=== PATIENT | male | born 1965 | race African-American/Black ===

== ENCOUNTER 2016-09-01 13:04 | Emergency (ER) | payer OTHER ==
[~2016-09-01] VITALS: Ht 188 cm; Wt 97.5 kg
--- NOTE | 2016-09-01 13:20 | NUR ---
called patient in to triage room x 3 times, no response. will try again later.
--- NOTE | 2016-09-01 13:30 | NUR ---
Presents self to ed due to dental pain, 02/18. Patient is also complaining of llg swelling started few days ago. ambulatory. Skin is intact. No redness. positive pedal pulse. vss. will cont to monitor
--- NOTE | 2016-09-01 13:40 | NUR ---
technical agronomist at bs
[2016-09-01] MEDS ORDERED: predniSONE 20 MG TABLET ONE (14:22)
[2016-09-01] MEDS: predniSONE 20 MG TABLET PO ONE (14:29)
[2016-09-01 14:30] LABS: BASOPHILS # (AUTO) 0.1 /CMM (0.0-0.2); EOSINOPHILS # (AUTO) 0.4 /CMM (0.0-0.7); EOSINOPHILS % (AUTO) 3.7 % (0.0-6.0); HEMATOCRIT 38 % (39-51); HEMOGLOBIN 12.8 g/dL (13.5-17.5); LYMPHOCYTES # (AUTO) 2.8 /CMM (0.8-4.8); LYMPHOCYTES % (AUTO) 28.7 % (20.0-44.0); MEAN CORPUSCULAR HEMOGLOBIN 27 PG (26.0-33.0); MEAN CORPUSCULAR HGB CONC 33 g/dl (31.0-36.0); MEAN CORPUSCULAR VOLUME 82 fL (80-96); MONOCYTES # (AUTO) 0.6 /CMM (0.1-1.30); MONOCYTES % (AUTO) 6.6 % (2.0-12.0); NEUTROPHILS # (AUTO) 5.9 /CMM (1.8-8.9); PLATELET COUNT (AUTO) 217 /CMM (150-450); RDW COEFFICIENT OF VARIATION 12.4 (11.5-15.0); WHITE BLOOD COUNT (AUTO) 9.8 K/uL (4.3-11.0)
[2016-09-01] MEDS ORDERED: ALBUTEROL FS 2.5 MG/3 ML VIAL.NEB ONE (14:30)
[2016-09-01] MEDS: ALBUTEROL FS 2.5 MG/3 ML VIAL.NEB NEB ONE (14:32)
[2016-09-01 14:44] LABS: CALCIUM, SERUM 8.6 mg/dL (8.5-10.1); POTASSIUM 4.3 mmol/L (3.5-5.1)
[2016-09-01] MEDS ORDERED: HYDROCODONE/APAP 10/325MG 1 EA TABLET ONE (15:03)
[2016-09-01] MEDS: HYDROCODONE/APAP 10/325MG 1 EA TABLET PO ONE (15:07)
--- NOTE | 2016-09-01 15:08 | NUR ---
raman francisco at
[2016-09-01] MEDS ORDERED: ALBU8.5H2 IH (15:40)
--- NOTE | 2016-09-01 15:46 | NUR ---
Patient does not wish to proceed with medical care recommended by Degrasse POT HOLDER BINDER. Patient given information related to possible complications, up to and including , which could occur as a result of leaving the hospital at this time. Patient verbalizes understanding of risks involved due to leaving against medical advice. Patient has signed AMA form.
[2016-09-01 15:48] VITALS: BP 140/88
[2016-09-01 18:27] LABS: INR 0.93 (0.87-1.13); PROTHROMBIN TIME 9.9 SECS (9.5-12.7)
== END 2016-09-01 15:57 | disposition left against medical advice (07) ==
LOC: ER 13:09
DX: I82.492 Acute embolism and thrombosis of other specified deep vein of left lower extremity (principal); J45.901 Unspecified asthma with (acute) exacerbation; K08.89 Other specified disorders of teeth and supporting structures; F17.210 Nicotine dependence, cigarettes, uncomplicated
CPT/HCPCS: 36415; 71010; 80048; 85025; 85378; 85610; 93971; 94640; 99285; 99406; A4606; J7512; Z7610

== ENCOUNTER 2016-09-01 22:22 | Emergency (ER) | payer OTHER ==
[~2016-09-01] VITALS: Ht 185.4 cm; Wt 93.4 kg
[~2016-09-01 22:22] MED LIST: ALBU8.5H2 IH
--- NOTE | 2016-09-01 22:50 | NUR ---
to bed 1 ambulatory c/o LLE Dvt. Pt was seen and evaluated here earlier today and signed out ama. Pt was diagnosed with Partially occlusive deep venous thrombosis of the left femoral and popliteal veins. placed pt on cardiac monitoring, continuous pox, o2@2l/nc. pending er md alonzo.
--- NOTE | 2016-09-01 23:03 | NUR ---
jeanette moran at bedside to clinton reyes.
[2016-09-01] MEDS ORDERED: IPRATROPIUM NEB FS 0.5 MG/2.5 ML AMPUL.NEB ONE (23:53)
[2016-09-01] MEDS ORDERED: ALBUTEROL FS 2.5 MG/3 ML VIAL.NEB ONE (23:53)
[2016-09-02] MEDS ORDERED: IPRATROPIUM NEB FS 0.5 MG/2.5 ML AMPUL.NEB NEB ONE
[2016-09-02] MEDS ORDERED: ALBUTEROL FS 2.5 MG/3 ML VIAL.NEB NEB ONE
--- NOTE | 2016-09-02 | NUR ---
rt at bedside to give hhn tx.
[2016-09-02 00:44] VITALS: BP 134/76
--- NOTE | 2016-09-02 00:44 | NUR ---
Patient discharged to home in stable condition. Written and verbal after care instructions given. Patient verbalizes understanding of instruction. ambulatory with a steady gait
== END 2016-09-02 00:45 | disposition home or self-care (01) ==
LOC: ER 22:26
DX: I82.402 Acute embolism and thrombosis of unspecified deep veins of left lower extremity (principal); J45.909 Unspecified asthma, uncomplicated; F10.20 Alcohol dependence, uncomplicated; F17.210 Nicotine dependence, cigarettes, uncomplicated; R06.2 Wheezing
CPT/HCPCS: 94640; 99285; A4606; Z7610

== ENCOUNTER 2016-09-08 11:40 | Emergency (ER) | payer OTHER ==
[~2016-09-08] VITALS: Ht 185.4 cm; Wt 90.7 kg
[2016-09-08 11:40] VITALS: BP 114/71
--- NOTE | 2016-09-08 12:28 | NUR ---
PT IS AGITATED ABOUT NOT GETTING PRESCRIPTION FOR [facility]. LEFT W/OUT ACI AND PRESCRIPTION.
== END 2016-09-08 12:31 | disposition home or self-care (01) ==
LOC: ER 11:43
DX: I82.4Z2 Acute embolism and thrombosis of unspecified deep veins of left distal lower extremity (principal); K08.89 Other specified disorders of teeth and supporting structures; J45.909 Unspecified asthma, uncomplicated; F17.200 Nicotine dependence, unspecified, uncomplicated
CPT/HCPCS: 99282; A4606; Z7610

== ENCOUNTER 2016-09-21 14:07 | Emergency (ER) | payer OTHER ==
[~2016-09-21] VITALS: Ht 185.4 cm; Wt 93.9 kg
--- NOTE | 2016-09-21 14:07 | NUR ---
PT BIB SELF C/O LEFT LOWER EXTREMITY SWELLING X YESTERDAY. COMPLAINS OF LLE PAIN. PLACED ON MONITOR. VSS. AWAITING MD ORDER.
--- NOTE | 2016-09-21 15:49 | NUR ---
Patient discharged to home in stable condition. Written and verbal after care instructions given. Patient verbalizes understanding of instruction.
[2016-09-21 15:50] VITALS: BP 130/85
== END 2016-09-21 15:52 | disposition home or self-care (01) ==
LOC: ER 14:08
DX: R60.0 Localized edema (principal); J45.909 Unspecified asthma, uncomplicated; F17.200 Nicotine dependence, unspecified, uncomplicated; Z86.718 Personal history of other venous thrombosis and embolism
CPT/HCPCS: 93971; 99284; A4606; Z7610

== ENCOUNTER 2016-11-11 04:17 | Emergency (ER) | payer OTHER ==
[~2016-11-11] VITALS: Ht 185.4 cm; Wt 93.9 kg
--- NOTE | 2016-11-11 04:27 | NUR ---
CALLED MR ADDISON AT WAITING ROOM NO ANSWER
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
--- NOTE | 2016-11-11 04:44 | NUR ---
DR. RUSSELL IS AT THE BEDSIDE.
[2016-11-11] MEDS ORDERED: IBUPROFEN 400 MG TABLET ONE (04:48)
[2016-11-11] MEDS ORDERED: RIVA1TAB PO (04:48)
--- NOTE | 2016-11-11 04:55 | NUR ---
PT REFUSED MOTRIN. AWARE.
--- NOTE | 2016-11-11 04:57 | NUR ---
PT IS STANDING AT THE BEDSIDE WITH HIS PHONE PLUGGED IN THE WALL. PT HAS EAR BUDS IN AND IS TALKING TO HIMSELF.
[2016-11-11] MEDS ORDERED: IBUPROFEN 400 MG TABLET PO ONE (05:00)
--- NOTE | 2016-11-11 05:06 | NUR ---
PT LEFT FOR CT VIA GURNEY.
--- NOTE | 2016-11-11 05:30 | NUR ---
PT RETURNED FROM CT.
[2016-11-11 05:35] VITALS: BP 142/87
--- NOTE | 2016-11-11 05:45 | NUR ---
PT APPEARS TO BE SLEEPING COMFORTABLY WITH NO S/S OF PAIN OR DISTRESS.
--- NOTE | 2016-11-11 06:20 | NUR ---
PT WAS GIVEN D/C INFORMATION AND AN RX FOR IBUPROFEN AND PRO AIR. PT GOT UPSET AND STARTED YELLING. PT WANTED ZYPREXA. PT WAS NOTIFIED THAT THE DR WAS NOT GIVING HIM AN RX FOR THAT MEDICATION AND THAT HE NEEDED TO F/U WITH HIS PSYCHIATRIST. PT WALKED OUT OF THE ER VERY UPSET.
--- NOTE | 2016-11-11 06:20 | NUR ---
Patient does not wish to proceed with medical care recommended by Dr. RUSSELL. Patient given information related to possible complications, up to and including , which could occur as a result of leaving the hospital at this time. Patient verbalizes understanding of risks involved due to leaving against medical advice. Patient has signed AMA form.
== END 2016-11-11 06:20 | disposition left against medical advice (07) ==
LOC: ER 04:17
DX: M54.2 Cervicalgia (principal); M54.6 Pain in thoracic spine; M54.5 Low back pain; J45.909 Unspecified asthma, uncomplicated; Z79.01 Long term (current) use of anticoagulants; Z86.718 Personal history of other venous thrombosis and embolism; F17.200 Nicotine dependence, unspecified, uncomplicated; V42.9XXA Unspecified car occupant injured in collision with two- or three-wheeled motor vehicle in traffic accident, initial encounter; Y93.89 Activity, other specified; Y92.488 Other paved roadways as the place of occurrence of the external cause; Y99.8 Other external cause status
CPT/HCPCS: 72050; 72074; 72110; 99284; A4606; Z7610

== ENCOUNTER 2017-05-14 08:30 | Inpatient (IN) | payer OTHER ==
[~2017-05-14] VITALS: Ht 188 cm; Wt 96.2 kg
[~2017-05-14 08:30] MED LIST changes: +RIVA1TAB PO
--- NOTE | 2017-05-14 08:40 | NUR ---
AAOX3, [id number] FROM HOME FOR ON/OFF NON RADIATING LEFT SIDED CHEST PAIN X 0700AM [id number], [id number] GIVEN BY EMS. PLACED ON MONITOR AND HOSPITAL GOWN. DR GUAN AT BS FOR EVAL. RR IS EVEN AND UNLABORED WITH NAD NOTED.
[2017-05-14 08:46] LABS: BASOPHILS # (AUTO) 0.1 /CMM (0.0-0.2); BASOPHILS % (AUTO) 0.9 % (0.0-2.0); EOSINOPHILS # (AUTO) 0.4 /CMM (0.0-0.7); EOSINOPHILS % (AUTO) 5.2 % (0.0-6.0); HEMATOCRIT 41 % (39-51); HEMOGLOBIN 13.4 g/dL (13.5-17.5); LYMPHOCYTES # (AUTO) 2.5 /CMM (0.8-4.8); LYMPHOCYTES % (AUTO) 33.1 % (20.0-44.0); MEAN CORPUSCULAR HEMOGLOBIN 27 PG (26.0-33.0); MEAN CORPUSCULAR HGB CONC 32 g/dl (31.0-36.0); MEAN CORPUSCULAR VOLUME 83 fL (80-96); MONOCYTES # (AUTO) 0.6 /CMM (0.1-1.30); MONOCYTES % (AUTO) 8.1 % (2.0-12.0); NEUTROPHILS % (AUTO) 52.7 % (43.0-81.0); PLATELET COUNT (AUTO) 209 /CMM (150-450); RDW COEFFICIENT OF VARIATION 14.9 (11.5-15.0); RED BLOOD CELL COUNT(AUTO) 4.97 MIL/uL (4.5-6.0); WHITE BLOOD COUNT (AUTO) 7.5 K/uL (4.3-11.0)
[2017-05-14 09:08] LABS: INR 0.93 (0.87-1.13); PROTHROMBIN TIME 9.7 SECS (9.5-12.7)
[2017-05-14 09:10] LABS: CALCIUM, SERUM 8.8 mg/dL (8.5-10.1); CARBON DIOXIDE 31 mmol/L (21-32); CHLORIDE 112 mmol/L (98-107); CREATININE 0.9 mg/dL (0.6-1.3); GLUCOSE 99 mg/dL (74-106); POTASSIUM 4.4 mmol/L (3.5-5.1); SODIUM SERUM 147 mmol/L (136-145); UREA NITROGEN, BLOOD 16 mg/dL (7-18)
[2017-05-14 09:16] LABS: ALANINE AMINOTRANSFERASE 39 U/L (12-78); ALBUMIN 3.5 g/dL (3.4-5.0); ALKALINE PHOSPHATASE 163 U/L (46-116); ASPARTATE AMINOTRANSFERASE 25 U/L (15-37); BILIRUBIN,TOTAL 0.2 mg/dL (0.2-1.0); TOTAL PROTEIN, SERUM 6.7 g/dL (6.4-8.2)
[2017-05-14 09:18] LABS: TROPONIN I < 0.017 ng/mL (0.00-0.056)
[2017-05-14] MEDS ORDERED: CT SWABBABLE VALVE TRANS SET 1 EA INFUS.SET MC ONE (09:21)
[2017-05-14] MEDS ORDERED: IOHEXOL-350 100 ML VIAL IV ONE (09:21)
[2017-05-14] MEDS ORDERED: IV NS 0.9% 250 ML IV ONE (09:22)
--- NOTE | 2017-05-14 09:25 | NUR ---
VASCULAR US TECH AT BS
--- NOTE | 2017-05-14 09:42 | NUR ---
PAGED [facility] -- ROBERTO GIBSON TUGBOAT OPERATOR.
--- NOTE | 2017-05-14 09:43 | NUR ---
PATIENT TRANSPORTED FOR CT.
[2017-05-14 10:03] LABS: EOSINOPHILS % (MANUAL) 4 % (0-4); LYMPHOCYTES % (MANUAL) 14 % (16-48); MONOCYTES % (MANUAL) 4 % (0-11.0); NEUTROPHILS % (MANUAL) 78 (42-76)
[2017-05-14] MEDS ORDERED: RIVA10TA PO (10:04)
[2017-05-14] MEDS ORDERED: OLAN10TA3 PO (10:04)
--- NOTE | 2017-05-14 10:24 | NUR ---
REPORT GIVEN TO AUDRA KOCH FOR NAHID TELE 112-2
--- NOTE | 2017-05-14 10:27 | NUR ---
TOLD TO RECEIVE LOVENOX SQ IN HIS ABDOMEN BUT WANTS IT GIVEN TO HIS ARM INSTEAD
[2017-05-14] MEDS ORDERED: ENOXAPARIN SODIUM 100 MG/ML DISP.SYRIN SQ ONE (10:30)
[2017-05-14 10:45] VITALS: BP 127/81
--- NOTE | 2017-05-14 10:45 | NUR ---
RN NOTES RECEIVED PATIENT FROM ER ALERT, AWAKE, ORIENTED X4 WITH BREATHING NORMAL, EVEN AND UNLABORED. NO SOB NOTED. NO ACUTE DISTRESS NOTED. TELE MONITOR REVEALS SR, HR=66. IV RAC IS PATENT AND INTACT, NO INFILTRATION NOTED. DENIES ANY PAIN OR DISCOMFORT. BOWEL SOUND PRESENT. PULSE PRESENT. SAFETY MEASURE OBSERVED. CALL LIGHT WITH IN REACH. WILL CONT TO MONITOR.
[2017-05-14] MEDS ORDERED: IV NS 0.9% 1,000 ML IV PRN (11:15)
[2017-05-14] MEDS ORDERED: MORPHINE SULFATE INJ 2 MG/ML DISP.SYRIN IV PRN (11:30)
[2017-05-14] MEDS ORDERED: ACETAMINOPHEN 325 MG TABLET PO PRN (11:30)
[2017-05-14] MEDS ORDERED: ENOXAPARIN SODIUM 40 MG/0.4 ML DISP.SYRIN SQ SCH (11:30)
[2017-05-14] MEDS ORDERED: ONDANSETRON HCL/PF 4 MG/2 ML VIAL IVP PRN (11:30)
[2017-05-14] MEDS ORDERED: ZOLPIDEM TARTRATE 5 MG TABLET PO PRN (11:30)
[2017-05-14 12:00] VITALS: BP_SYST 124; BP_SYST 127; BP_DIAS 75; BP_DIAS 81
[2017-05-14] MEDS ORDERED: FLU VACC QS 2017-18(36MOS+)/PF 0.5 ML DISP.SYRIN IM ONE (12:00)
[2017-05-14] MEDS ORDERED: FENTANYL PF 100MCG/2ML AMPUL IV PRN (12:00)
[2017-05-14 16:00] VITALS: BP 124/64
[2017-05-14] MEDS: IV 1/2NS 1000 ML 1,000 ML IV PRN (17:43)
--- NOTE | 2017-05-14 19:06 | NUR ---
RN NOTES PATIENT DISCHARGED IN STABLE CONDITION WITH BREATHING NORMAL, EVEN AND UNLABORED. NO SOB NOTED. NO ACUTE DISTRESS NOTED. KEPT CLEAN, DRY AND COMFORTABLE. ALL NEEDS ATTENDED. SAFETY MEASURE OBSERVED. CALL LIGHT WITH IN REACH. WILL CONT TO MONITOR.
--- NOTE | 2017-05-14 19:35 | NUR ---
BODY LINER NOTES RECEIVED ON BED A/O X4,DENIES CHEST PAIN AT THE MOMENT,VISITOR AT BEDSIDE.SALINE LOCK WITH IV FLUIDS INFUSING WELL VIA RIGHT AC.CALL LIGHT IN REACH,NEEDS ANTICIPATED.
--- NOTE | 2017-05-14 19:40 | NUR ---
TRAFFIC WAREHOUSE SUPERVISOR NOTES CLAIMED HE'S HUNGRY,GIVEN TUNA SANDWICH PER PATIENT REQUEST.
[2017-05-14 20:00] VITALS: BP 137/85
--- NOTE | 2017-05-14 22:49 | NUR ---
GEOLOGICAL DRAFTER NOTES SLEEPING AT THIS TIME,KEPT WARM AND COMFORTABLE.
[2017-05-15] VITALS: BP 125/74
[2017-05-15 04:43] VITALS: BP 116/64
[2017-05-15] MEDS: IV 1/2NS 1000 ML 1,000 ML IV PRN (05:53)
--- NOTE | 2017-05-15 06:30 | NUR ---
MARINA MANAGER NOTES SLEPT WITH INTERVALS,AVRIL CHEST PAIN,ABLE TO DANGLE BOTH LEGS.IVF IN PROGRESS.CALL LIGHT IN REACH,NEEDS ATTENDED.WILL ENDORSE TO DAY NURSE FOR NAHID
[2017-05-15 07:27] LABS: BASOPHILS # (AUTO) 0.3 /CMM (0.0-0.2); BASOPHILS % (AUTO) 3.7 % (0.0-2.0); EOSINOPHILS # (AUTO) 0.6 /CMM (0.0-0.7); EOSINOPHILS % (AUTO) 7.6 % (0.0-6.0); HEMATOCRIT 40 % (39-51); HEMOGLOBIN 12.9 g/dL (13.5-17.5); LYMPHOCYTES # (AUTO) 2.5 /CMM (0.8-4.8); LYMPHOCYTES % (AUTO) 32.7 % (20.0-44.0); MEAN CORPUSCULAR HEMOGLOBIN 27 PG (26.0-33.0); MEAN CORPUSCULAR HGB CONC 32 g/dl (31.0-36.0); MEAN CORPUSCULAR VOLUME 82 fL (80-96); MONOCYTES # (AUTO) 0.7 /CMM (0.1-1.30); MONOCYTES % (AUTO) 9.1 % (2.0-12.0); NEUTROPHILS # (AUTO) 3.5 /CMM (1.8-8.9); NEUTROPHILS % (AUTO) 46.9 % (43.0-81.0); PLATELET COUNT (AUTO) 189 /CMM (150-450); RDW COEFFICIENT OF VARIATION 14.6 (11.5-15.0); RED BLOOD CELL COUNT(AUTO) 4.85 MIL/uL (4.5-6.0); WHITE BLOOD COUNT (AUTO) 7.5 K/uL (4.3-11.0)
--- NOTE | 2017-05-15 07:30 | NUR ---
RN AM NOTES RECEIVED PATIENT IN BED, AOX4, ON RA, NAD, NO SOB, RESPIRATION UNLABORED, TELEMETRY READS SR HR 68, DENIES CHEST PAIN OR DISCOMFORT AT THIS TIME. RT AC G20 WITH 1/2 NS AT 100 ML/HR INFUSING WELL, SITE CLEAR. SKIN INTACT, REGULAR DIET, AMBULATORY, SAFETY MEASURE OBSERVED. CALL LIGHT WITH IN REACH. WILL CONT TO MONITOR.
[2017-05-15 07:43] LABS: ALBUMIN 3.1 g/dL (3.4-5.0); BILIRUBIN,TOTAL 0.4 mg/dL (0.2-1.0); CALCIUM, SERUM 8.6 mg/dL (8.5-10.1); MAGNESIUM 1.8 mg/dL (1.8-2.4); PHOSPHORUS 3.5 mg/dL (2.5-4.9); POTASSIUM 4.4 mmol/L (3.5-5.1); TOTAL PROTEIN, SERUM 6.2 g/dL (6.4-8.2)
[2017-05-15 07:49] LABS: THYROID STIMULATING HORMONE 1.395 uIU/mL (0.358-3.74)
[2017-05-15 08:00] VITALS: BP_SYST 116; BP_SYST 122; BP_DIAS 64; BP_DIAS 74
[2017-05-15] MEDS ORDERED: OLANZAPINE 10 MG TABLET PO SCH (09:00)
[2017-05-15] MEDS ORDERED: RIVAROXABAN 10 MG TABLET PO SCH (09:00)
--- NOTE | 2017-05-15 09:30 | NUR ---
RN NOTES ADMINISTERED DUE MEDS.
--- NOTE | 2017-05-15 11:23 | NUR ---
BOOK JOGGER NOTES. PATIENT DISCHARGED TO HOME TODAY PER MD IN STABLE CONDITION. PROVIDED DC INSTRUCTIONS, MED RECON LIST/PRESCRIPTIONS AND HEALTH TEACHINGS. PATIENT TO FOLLOW UP WITH PCP ION 1-2 WEEKS AND WILL MAKE OWN SCHEDULE. RIGHT AC IV ACCESS REMOVED, NO BLEEDING, DRESSING IN PLACE. ALL BELONGINGS CHECKED, RETURNED. ALL PAPER WORKS SIGNED, ACCOUNTS RECEIVABLE MANAGER PATIENT AND WILL GO HOME VIA PRIVATE CAR.
== END 2017-05-15 11:23 | disposition home or self-care (01) | DRG 203 ==
LOC: ER 08:31 → TELE1 10:19
PROVIDERS: ADMIT Nurse Practitioner Acute Care; ATTEND Nurse Practitioner Acute Care
DX: M94.0 Chondrocostal junction syndrome [Tietze] (principal); E87.0 Hyperosmolality and hypernatremia; E86.0 Dehydration; Z91.19 Patient's noncompliance with other medical treatment and regimen; Z86.718 Personal history of other venous thrombosis and embolism; F17.210 Nicotine dependence, cigarettes, uncomplicated; J45.909 Unspecified asthma, uncomplicated; F15.129 Other stimulant abuse with intoxication, unspecified
CPT/HCPCS: 36415; 71010-TC; 80048-TC; 80053-TC; 80061-TC; 80076-TC; 83735-TC; 84100-TC; 84443-TC; 84484-TC; 85025-TC; 85730-TC; 93307-TC; 93970-TC; A4606; J1650; J3490; J7030; J7050; Q2036; Q9967; Z7610

== ENCOUNTER 2017-05-24 18:06 | Emergency (ER) | payer OTHER ==
[~2017-05-24] VITALS: Ht 182.9 cm; Wt 95.3 kg
[~2017-05-24 18:06] MED LIST changes: -ALBU8.5H2 IH; +OLAN10TA3 PO; +RIVA10TA PO; -RIVA1TAB PO
[2017-05-24 18:50] VITALS: BP 121/86
--- NOTE | 2017-05-24 19:30 | NUR ---
PT REFUSED ACCUCHECK. WANT TO LEAVE ED RIGHT NOW. RASHAD IMPRESSION PRINTER AWARE. PT D/C HOME STABLE COND.
== END 2017-05-24 19:48 | disposition home or self-care (01) ==
LOC: ER 18:08
DX: M70.22 Olecranon bursitis, left elbow (principal); J45.909 Unspecified asthma, uncomplicated; F17.200 Nicotine dependence, unspecified, uncomplicated; Z79.01 Long term (current) use of anticoagulants; Z86.718 Personal history of other venous thrombosis and embolism; V87.8XXA Person injured in other specified noncollision transport accidents involving motor vehicle (traffic), initial encounter; Y93.55 Activity, bike riding; Y92.413 State road as the place of occurrence of the external cause; Y99.8 Other external cause status
CPT/HCPCS: 99282; A4606; Z7610

== ENCOUNTER 2017-11-20 10:59 | Emergency (ER) | payer OTHER ==
[~2017-11-20] VITALS: Ht 185.4 cm; Wt 111.1 kg
--- NOTE | 2017-11-20 11:05 | NUR ---
PRESENTS TO ER C/O FEELING DEPRESSED, HAVING THOUGHTS OF HURTING SELF W/O PLAN. DENIES HI. A/OX 4. BREATHING EVEN AND UNLABORED. CALM AND COOPERATIVE. NAD, NO SOB, VITALS STABLE. SAFETY AND COMFORT MEASURES IN PLACE. AWAITING MD ORDERS.
--- NOTE | 2017-11-20 11:22 | NUR ---
SALES AND MARKETING VICE PRESIDENT AT BEDSIDE FOR BLOOD DRAW.
[2017-11-20 11:31] LABS: BASOPHILS # (AUTO) 0.1 /CMM (0.0-0.2); EOSINOPHILS % (AUTO) 5.8 % (0.0-6.0); HEMATOCRIT 41 % (39-51); HEMOGLOBIN 13.4 g/dL (13.5-17.5); LYMPHOCYTES # (AUTO) 2.6 /CMM (0.8-4.8); LYMPHOCYTES % (AUTO) 36.4 % (20.0-44.0); MEAN CORPUSCULAR HGB CONC 33 g/dl (31.0-36.0); MEAN CORPUSCULAR VOLUME 80 fL (80-96); MONOCYTES # (AUTO) 0.5 /CMM (0.1-1.30); MONOCYTES % (AUTO) 7.6 % (2.0-12.0); NEUTROPHILS # (AUTO) 3.4 /CMM (1.8-8.9); NEUTROPHILS % (AUTO) 49.2 % (43.0-81.0); PLATELET COUNT (AUTO) 162 /CMM (150-450); RDW COEFFICIENT OF VARIATION 13.1 (11.5-15.0)
--- NOTE | 2017-11-20 11:32 | NUR ---
URINE OBTAINED AND SENT TO LAB.
[2017-11-20 11:38] LABS: CALCIUM, SERUM 8.7 mg/dL (8.5-10.1); CARBON DIOXIDE 30 mmol/L (21-32); CHLORIDE 109 mmol/L (98-107); GLUCOSE 115 mg/dL (74-106); POTASSIUM 4.1 mmol/L (3.5-5.1); SODIUM SERUM 144 mmol/L (136-145); UREA NITROGEN, BLOOD 13 mg/dL (7-18)
[2017-11-20 11:51] LABS: ACETAMINOPHEN < 2 ug/ml (10-30); ALANINE AMINOTRANSFERASE 21 U/L (12-78); ALBUMIN 3.4 g/dL (3.4-5.0); ALCOHOL, BLOOD < 3 mg/dL (0-0); ALKALINE PHOSPHATASE 98 U/L (46-116); ASPARTATE AMINOTRANSFERASE 17 U/L (15-37); BILIRUBIN,DIRECT 0.1 mg/dL (0.0-0.2); BILIRUBIN,TOTAL 0.4 mg/dL (0.2-1.0); SALICYLATE 3.6 mg/dL (2.8-20.0); TOTAL PROTEIN, SERUM 6.7 g/dL (6.4-8.2)
[2017-11-20 11:52] LABS: APPEARANCE,URINE Clear (CLEAR); BILIRUBIN,URINE Negative (NEGATIVE); BLOOD, URINE Negative Ery/uL (NEGATIVE); COLOR,URINE Yellow (YELLOW); KETONES,URINE Negative (NEGATIVE); LEUKOCYTE ESTERASE ,URINE Negative (NEGATIVE); NITRITE, URINE Negative (NEGATIVE); PH,URINE 7.5 (5.0-8.0); PROTEIN,URINE Negative (NEGATIVE); UGLUCOSE Negative (NEGATIVE); UROBILINOGEN,URINE 0.2 EU/dL (0.2)
--- NOTE | 2017-11-20 12:04 | NUR ---
Called Saroj PATELW for psychiatric evaluation.
--- NOTE | 2017-11-20 13:06 | NUR ---
CEMENT CONTRACTOR, ART AT BEDSIDE FOR EVAL.
[2017-11-20 13:43] VITALS: BP 148/86
--- NOTE | 2017-11-20 13:47 | NUR ---
Patient discharged to home in stable condition. Written and verbal after care instructions given. Patient verbalizes understanding of instruction.
== END 2017-11-20 13:46 | disposition home or self-care (01) ==
LOC: ER 11:09
DX: F32.9 Major depressive disorder, single episode, unspecified (principal); F43.10 Post-traumatic stress disorder, unspecified; F12.10 Cannabis abuse, uncomplicated; J45.909 Unspecified asthma, uncomplicated; F17.200 Nicotine dependence, unspecified, uncomplicated; Z86.718 Personal history of other venous thrombosis and embolism
CPT/HCPCS: 36415; 80048-TC; 80076-TC; 80305; 81000-TC; 85025-TC; A4606; G0480; Z7610

== ENCOUNTER 2019-02-16 12:27 | Emergency (ER) | payer OTHER ==
[~2019-02-16] VITALS: Ht 185.4 cm; Wt 122.5 kg
--- NOTE | 2019-02-16 12:44 | NUR ---
PT BIB SELF C/O LOWER BACK PAIN S/P GLF YESTERDAY. PT IS AAOX4, NOT IN RESPIRAOTRY DISTRESS, V/S STABLE, KEPT RESTED AND COMFORTABLE, WILL CONTINUE TO MONITOR.
--- NOTE | 2019-02-16 12:54 | NUR ---
SEEN AND EXAMINED BY JAMIE PEDROZA
[2019-02-16] MEDS ORDERED: CYCLOBENZAPRINE 10 MG TABLET PO ONE (13:00)
[2019-02-16] MEDS ORDERED: ACETAMINOPHEN 325 MG TABLET PO ONE (13:00)
[2019-02-16] MEDS ORDERED: ACETAMINOPHEN ES 500 MG TABLET ONE (13:03)
[2019-02-16] MEDS ORDERED: CYCLOBENZAPRINE 10 MG TABLET ONE (13:03)
--- NOTE | 2019-02-16 13:10 | NUR ---
MARINE PHOTOGRAPHER AT BEDSIDE FOR XRAY.
[2019-02-16 14:16] VITALS: BP 123/76
--- NOTE | 2019-02-16 14:16 | NUR ---
Patient discharged to home in stable condition. Written and verbal after care instructions given. Patient verbalizes understanding of instruction.
== END 2019-02-16 14:19 | disposition home or self-care (01) ==
LOC: ER 12:27
DX: M54.5 Low back pain (principal); J45.909 Unspecified asthma, uncomplicated; F31.9 Bipolar disorder, unspecified; F10.10 Alcohol abuse, uncomplicated; F17.200 Nicotine dependence, unspecified, uncomplicated; Y90.9 Presence of alcohol in blood, level not specified; Z86.718 Personal history of other venous thrombosis and embolism; W01.0XXA Fall on same level from slipping, tripping and stumbling without subsequent striking against object, initial encounter; Y93.89 Activity, other specified; Y92.89 Other specified places as the place of occurrence of the external cause; Y99.8 Other external cause status
CPT/HCPCS: 72074-TC; 72110-TC

== ENCOUNTER 2020-12-15 22:43 | Emergency (ER) | payer OTHER ==
[~2020-12-15] VITALS: Ht 182.9 cm; Wt 127.0 kg
[2020-12-15 22:47] VITALS: BP 130/76
== END 2020-12-16 00:47 | disposition home or self-care (01) ==
LOC: ER 22:45
DX: R60.0 Localized edema (principal); J45.909 Unspecified asthma, uncomplicated; F31.9 Bipolar disorder, unspecified; Z86.718 Personal history of other venous thrombosis and embolism; Z79.899 Other long term (current) drug therapy
CPT/HCPCS: 93970-TC

== ENCOUNTER 2021-08-08 10:43 | Emergency (ER) | payer OTHER ==
[~2021-08-08] VITALS: Ht 185.4 cm; Wt 122.5 kg
[2021-08-08 10:49] VITALS: BP 134/65
[2021-08-08] MEDS ORDERED: AMOX-427 PO (10:54)
[2021-08-08] MEDS ORDERED: TDAP [DIPH/PERTUSSIS/TET] 0.5 ML VIAL IM ONE (10:58)
[2021-08-08] MEDS: TDAP [DIPH/PERTUSSIS/TET] 0.5 ML VIAL IM ONE (11:04)
== END 2021-08-08 11:05 | disposition home or self-care (01) ==
LOC: ER 10:46
DX: S61.250A Open bite of right index finger without damage to nail, initial encounter (principal); S61.252A Open bite of right middle finger without damage to nail, initial encounter; J45.909 Unspecified asthma, uncomplicated; F31.9 Bipolar disorder, unspecified; F17.200 Nicotine dependence, unspecified, uncomplicated; Z86.718 Personal history of other venous thrombosis and embolism; Z79.01 Long term (current) use of anticoagulants; Z79.899 Other long term (current) drug therapy; Z60.2 Problems related to living alone
CPT/HCPCS: 90715